=== PATIENT | male | born 1945 | race Caucasian/White ===

== ENCOUNTER 2017-01-17 06:50 | Day surgery (SDC) | payer OTHER, BC ==
[~2017-01-17 06:50] MED LIST: Lactated Ringers 1,000 ML IV SCH; Sodium Chloride 0.9% 10 ML Syringe FLUSH PRN
[2017-01-17] MEDS ORDERED: ceFAZolin 1 GM in Premix Bag 1 BAG IV ONE (07:00)
[2017-01-17] MEDS ORDERED: Bupivacaine 0.5% 10 ML SDV ONE (07:08)
[2017-01-17] MEDS ORDERED: Lidocaine 1% 30 ML SDV ONE (07:08)
[2017-01-17] MEDS ORDERED: Succinylcholine 200 MG/10 ML MDV ONE (08:12)
[2017-01-17] MEDS ORDERED: Propofol 200 MG/20 ML SDV ONE ×2 (08:21→10:45)
[2017-01-17] MEDS ORDERED: Bupivacaine 0.5% 10 ML SDV INJECT ONE ×3 (08:44→10:20)
[2017-01-17] MEDS ORDERED: Lidocaine 1% 30 ML SDV INJECT ONE ×3 (08:44→10:20)
[2017-01-17] MEDS ORDERED: Lidocaine 2% 20 ML MDV INJECT ONE (10:11)
[2017-01-17] MEDS ORDERED: Midazolam 1 MG/ML 2 ML SDV IV ONE (10:11)
[2017-01-17] MEDS ORDERED: Ondansetron 4 MG/2 ML SDV IV ONE (10:11)
[2017-01-17] MEDS ORDERED: Propofol 200 MG/20 ML SDV IV ONE (10:11)
[2017-01-17] MEDS ORDERED: Midazolam 1 MG/ML 2 ML SDV ONE (10:45)
[2017-01-17] MEDS ORDERED: Lidocaine 2% 20 ML MDV ONE (10:45)
[2017-01-17] MEDS ORDERED: Ondansetron 4 MG/2 ML SDV ONE (10:45)
--- NOTE | 2017-01-17 11:10 | PCM.OPNOTE ---
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 TT 79 mins. Placed into well padded compression dressing with cam boot. To be NWB to LLE. 2 lakia cannulated 3.0 screws to non union at distal ankle.
[2017-01-17 14:40] VITALS: BP 147/66
--- NOTE | 2017-01-18 17:50 | EKG ---
01/17/2017 - NIGEL MILLER I reviewed the EKG and agree with the machine's reading. [facility] /[id number]
--- NOTE | 2017-01-18 21:20 | OR ---
DATE: 01/17/2017 PREOPERATIVE DIAGNOSIS: Left ankle nonunion fracture. POSTOPERATIVE DIAGNOSIS: Left ankle nonunion fracture. PROCEDURE PERFORMED: Left ankle nonunion debridement with fixation. ANESTHESIA: LMA with preoperative local block of 10 mL 1:1 mixture of 1% lidocaine plain and 0.5% Marcaine plain. TOURNIQUET TIME: 79 minutes pneumatic ankle tourniquet. ESTIMATED BLOOD LOSS: Minimal. SPECIMEN: None. COMPLICATIONS: None. INDICATIONS: Dominic is a 71-year-old male, who presents with left ankle pain. He has been having redness and swelling to that left ankle, this has been going on for quite some time now. I saw him in September and we did an x-ray, which showed a possible nonunion of the ankle bone, also did an MRI on him and we discussed surgery at that time as he has been having this pain for quite a while. He has tried resting the ankle with no relief. He states on August 04, he noticed redness to the ankle, saw his primary care at the [place], who wanted him to get this checked out by specialist. He was on antibiotics and also started on a water pill. He still feels tightness to the left ankle, it is also swollen. There are no open lesions or signs of infection today. He has twisted that foot/ankle many times in the past and it is painful for him when he is walking or standing. X-rays of the ankle reveal old appearing fracture of the left distal fibula/tibia, which does not appear to be healed, it looks like a nonunion with sclerotic margins, hypertrophic type on MRI of the left ankle reveals increased signal with ankle effusion of the lateral ankle, area of nonunion to the distal fibula. It also appears that there seems to be a bony bridging at the distal fibula and tibia dorsally at the area of the syndesmosis. There is some increased signal intensity as well. The patient is not having any pain at the peroneal tendons. The ankle is stable with talar tilt and anterior drawer. The patient voiced good understanding of postprocedure and possible complications, elects to have surgery at this time. DESCRIPTION OF PROCEDURE: The patient was taken to the operating room, lying in supine position. After adequate anesthesia induction as described above. The left foot and ankle were prepped and draped in the usual sterile fashion. A pneumatic thigh tourniquet was inflated to 250 mmHg. Attention was then directed to the dorsal lateral ankle where an approximately 4 cm linear incision was made overlying the distal fibula. Sharp and blunt dissection were performed down to the level of the fibula. The nonunion at the dorsal lateral fibula was identified. The nonunion was at more of the area of the anterior inferior tib- fib ligament and seemed to be a bony bridging across the fibula to the tibia at this point. This was not taken down as I did not want to destabilize the ankle. The nonunion was debrided and also drilled with a 0.062 inch K-wire. Two Eulalio 3.0 cannulated screws were then placed across the nonunion starting at the lateral dorsal fibula and going medially, I ensured that it did not go into the syndesmosis space. The ankle joint was then tested and the syndesmosis was also tested and was stable with external rotation and also talar tilt and anterior drawer stable. The area was then irrigated with copious amounts of sterile saline. Fluoroscopy was used throughout the procedure to verify proper positioning of the screws and compression at the nonunion site. The deep closure was completed with 3-0 Vicryl and skin closure was completed with 4-0 nylon. The patient was placed in a compressive dressing in a Cam boot. He will be offloading to the foot. He has tolerated anesthesia and the procedure well and was transferred to recovery with vascular status intact as noted by immediate hyperemia to all digits upon deflation of the ankle tourniquet. He was then discharged home when he met hospital discharge requirements. [facility] /[id number]
== END 2017-01-17 13:15 | disposition home or self-care (01) ==
LOC: DL.SDS 06:50
PROVIDERS: ATTEND Podiatrist
DX: S82.892K Other fracture of left lower leg, subsequent encounter for closed fracture with nonunion (principal); I10 Essential (primary) hypertension; E78.5 Hyperlipidemia, unspecified; Z98.890 Other specified postprocedural states; Z79.82 Long term (current) use of aspirin; Z88.8 Allergy status to other drugs, medicaments and biological substances; J30.2 Other seasonal allergic rhinitis; Z87.891 Personal history of nicotine dependence
CPT/HCPCS: 27726; 76000; C1713; J0690; J2250; J2405; J2704; J7120; 01480

== ENCOUNTER 2017-08-06 10:51 | Emergency (ER) | payer BC, MEDICARE, OTHER ==
[2017-08-06] MEDS ORDERED: Diltiazem 25 MG/5 ML SDV IVPUSH ONE (11:33)
[2017-08-06 12:52] LABS: ANION GAP 15.5; CHLORIDE,CL 98 mmol/L (101-111); SODIUM,NA 135 mmol/L (135-145)
--- NOTE | 2017-08-06 13:11 | EDM.PDOC ---
ED HPI GENERAL MEDICAL PROBLEM - General Chief Complaint: Cardiovascular Problem Stated Complaint: AFIB. CHEST PAIN. CAME FROM [facility] Time Seen by Provider: 08/06/17 11:50 Source of Information: Reports: Patient, RN, RN Notes Reviewed History Limitations: Reports: No Limitations - History of Present Illness INITIAL COMMENTS - FREE TEXT/NARRATIVE: Patient presents from [facility] with complaint of increased heart rate, cough, fever and chills. GAL Evans, from [place] state he has new onset of A-fib in RVR. Patient denies chest pain but admits to shortness of breath at times. Onset: Today Location: Reports: Chest Quality: Reports: Ache Severity: Severe Improves with: Reports: None Worsens with: Reports: None Associated Symptoms: Reports: No Other Symptoms - Related Data Allergies Allergy/AdvReac Type Severity Reaction Status Date / Time lisinopril AdvReac Cough Verified 08/06/17 11:13 simvastatin [From Zocor] AdvReac Joint Pain Verified 08/06/17 11:13 Past Medical History HEENT History: Reports: Hard of Hearing, Impaired Vision Other HEENT History: bilateral hearing aids. (doesn't wear them much). bilateral cataraces Cardiovascular History: Reports: High Cholesterol, Hypertension, Other (See Below) Other Cardiovascular History: Hyperlipidemia. Dyslipidemia Respiratory History: Reports: None Gastrointestinal History: Reports: Diverticulosis, GERD Genitourinary History: Reports: Other (See Below) Other Genitourinary History: erectile disorder Musculoskeletal History: Reports: Arthritis, Back Pain, Chronic, Fracture, Osteoarthritis, Osteoporosis, Other (See Below) Other Musculoskeletal History: costochondritis, scoliosis, DJD, Heel fx and Lumbago. Stress Fx. both heels. S/P RIGHT HIP FRACTURE. S/P LEFT ANKLE FRACTURE Neurological History: Reports: Other (See Below) Other Neuro History: CEREB DEGENERATION NOS. Insomnia Psychiatric History: Reports: None Endocrine/Metabolic History: Reports: Other (See Below) Other Endocrine/Metabolic History: impaired fasting glucose Hematologic History: Reports: None Immunologic History: Reports: None Oncologic (Cancer) History: Reports: None Dermatologic History: Reports: Decubitus Ulcer, Eczema Other Dermatologic History: Chronic ulcer of leg - Infectious Disease History Infectious Disease History: Reports: Chicken Pox, Measles, Rheumatic Fever - Past Surgical History HEENT Surgical History: Reports: Cataract Surgery, Other (See Below) Other HEENT Surgeries/Procedures: Hx of septoplasty and rhinoplasty. Cardiovascular Surgical History: Reports: None GI Surgical History: Reports: Colonoscopy Musculoskeletal Surgical History: Reports: Shoulder Replacement Other Musculoskeletal Surgeries/Procedures:: R Hip Fx. lisy 1994 Social & Family History - Family History Family Medical History: Noncontributory - Tobacco Use Smoking Status *Q: Former Smoker Years of Tobacco use: 20 Packs/Tins Daily: 1 Used Tobacco, but Quit: Yes Month Tobacco Last Used: 1979 Second Hand Smoke Exposure: No - Caffeine Use Caffeine Use: Reports: Coffee - Alcohol Use Days Per Week of Alcohol Use: 4 Number of Drinks Per Day: 1 Total Drinks Per Week: 4 - Recreational Drug Use Recreational Drug Use: No ED ROS GENERAL - Review of Systems Review Of Systems: ROS reveals no pertinent complaints other than HPI. ED EXAM, GENERAL - Physical Exam Exam: See Below Exam Limited By: No Limitations General Appearance: Alert, WD/WN, No Apparent Distress Eye Exam: Bilateral Eye: Normal Inspection Ears: Normal External Exam, Normal Canal, Hearing Grossly Normal, Normal TMs Nose: Normal Inspection, Normal Mucosa, No Blood Throat/Mouth: Normal Inspection, Normal Lips, Normal Teeth, Normal Gums, Normal Oropharynx, Normal Voice, No Airway Compromise Head: Atraumatic, Normocephalic Neck: Normal Inspection, Supple, Non-Tender, Full Range of Motion Respiratory/Chest: Other (diminished crackles bases bilateral) Cardiovascular: Other (irregular rapid.) GI/Abdominal: Normal Bowel Sounds, Soft, Non-Tender, No Organomegaly, No Distention, No Abnormal Bruit, No Mass (Male) Exam: Deferred Rectal (Males) Exam: Deferred Back Exam: Normal Inspection, Full Range of Motion, NT Extremities: Normal Inspection, Normal Range of Motion, Non-Tender, Normal Capillary Refill, No Pedal Edema Neurological: Alert, Oriented, CN II-XII Intact, Normal Cognition, Normal Gait, Normal Reflexes, No Motor/Sensory Deficits Psychiatric: Normal Affect, Normal Mood Skin Exam: Warm, Dry, Intact, Normal Color, No Rash Lymphatic: No Adenopathy Course - Vital Signs Last Recorded V/S: Last Vital Signs Temp 100.5 F 08/06/17 13:49 Pulse 123 H 08/06/17 14:35 Resp 16 08/06/17 14:35 BP 121/73 08/06/17 14:35 Pulse Ox 94 L 08/06/17 14:35 - Orders/Labs/Meds Labs: Laboratory Tests 08/06/17 08/06/17 08/06/17 Range/Units 12:00 12:19 12:19 WBC 23.5 H (5.0-10.0) 10^3/uL RBC 4.99 (4.6-6.2) 10^6/uL Hgb 15.2 (14.0-18.0) g/dL Hct 45.0 (40.0-54.0) % MCV 90.2 (80-100) fL MCH 30.5 (27.0-34.0) pg MCHC 33.8 (33.0-35.0) g/dL Plt Count 291 (150-450) 10^3/uL Neut % (Auto) 86.3 H (42.2-75.2) % Lymph % (Auto) 5.9 L (20.5-50.1) % Garfield % (Auto) 6.8 (2-8) % Eos % (Auto) 0.7 L (1.0-3.0) % Baso % (Auto) 0.3 (0.0-1.0) % Sodium 135 (135-145) mmol/L Potassium 3.5 L (3.6-5.0) mmol/L Chloride 98 L (101-111) mmol/L Carbon Dioxide 25.0 (21.0-31.0) mmol/L Anion Gap 15.5 BUN 23 H (7-18) mg/dL Creatinine 1.0 (0.6-1.3) mg/dL Est Cr Clr Drug Dosing 79.92 mL/min Estimated GFR (MDRD) > 60 BUN/Creatinine Ratio 23.00 Glucose 108 H (74-105) mg/dL Lactic Acid (0.5-2.2) mmol/L Calcium 8.8 (8.4-10.2) mg/dl Total Bilirubin 1.6 H (0.2-1.0) mg/dL AST 48 H (10-42) IU/L ALT 73 H (10-60) IU/L Alkaline Phosphatase 100 (42-121) IU/L Troponin I < 0.02 (0.00-0.02) ng/ml Total Protein 7.1 (6.7-8.2) g/dl Albumin 3.2 (3.2-5.5) g/dl Globulin 3.9 Albumin/Globulin Ratio 0.82 Urine Color Hazen (YELLOW) Urine Appearance Slightly cloudy (CLEAR) Urine pH 5.5 (5.0-9.0) Ur Specific Mobile 1.015 (1.005-1.030) Urine Protein 30 H (NEGATIVE) Urine Glucose (UA) Negative (NEGATIVE) Urine Ketones 40 H (NEGATIVE) Urine Occult Blood Trace-lysed H (NEGATIVE) Urine Nitrite Negative (NEGATIVE) Urine Bilirubin Moderate H (NEGATIVE) Urine Urobilinogen 2.0 H (0.2-1.0) mg/dL Ur Leukocyte Esterase Negative (NEGATIVE) Urine RBC 0-5 /HPF Urine WBC 10-20 H (0-5/HPF) /HPF Ur Epithelial Cells Few /HPF Amorphous Sediment Few (0/HPF) /HPF Urine Bacteria Not seen (0-FEW/HPF) /HPF Urine Mucus Many H /LPF 08/06/17 Range/Units 12:36 WBC (5.0-10.0) 10^3/uL RBC (4.6-6.2) 10^6/uL Hgb (14.0-18.0) g/dL Hct (40.0-54.0) % MCV (80-100) fL MCH (27.0-34.0) pg MCHC (33.0-35.0) g/dL Plt Count (150-450) 10^3/uL Neut % (Auto) (42.2-75.2) % Lymph % (Auto) (20.5-50.1) % Garfield % (Auto) (2-8) % Eos % (Auto) (1.0-3.0) % Baso % (Auto) (0.0-1.0) % Sodium (135-145) mmol/L Potassium (3.6-5.0) mmol/L Chloride (101-111) mmol/L Carbon Dioxide (21.0-31.0) mmol/L Anion Gap BUN (7-18) mg/dL Creatinine (0.6-1.3) mg/dL Est Cr Clr Drug Dosing mL/min Estimated GFR (MDRD) BUN/Creatinine Ratio Glucose (74-105) mg/dL Lactic Acid 1.3 (0.5-2.2) mmol/L Calcium (8.4-10.2) mg/dl Total Bilirubin (0.2-1.0) mg/dL AST (10-42) IU/L ALT (10-60) IU/L Alkaline Phosphatase (42-121) IU/L Troponin I (0.00-0.02) ng/ml Total Protein (6.7-8.2) g/dl Albumin (3.2-5.5) g/dl Globulin Albumin/Globulin Ratio Urine Color (YELLOW) Urine Appearance (CLEAR) Urine pH (5.0-9.0) Ur Specific Mobile (1.005-1.030) Urine Protein (NEGATIVE) Urine Glucose (UA) (NEGATIVE) Urine Ketones (NEGATIVE) Urine Occult Blood (NEGATIVE) Urine Nitrite (NEGATIVE) Urine Bilirubin (NEGATIVE) Urine Urobilinogen (0.2-1.0) mg/dL Ur Leukocyte Esterase (NEGATIVE) Urine RBC /HPF Urine WBC (0-5/HPF) /HPF Ur Epithelial Cells /HPF Amorphous Sediment (0/HPF) /HPF Urine Bacteria (0-FEW/HPF) /HPF Urine Mucus /LPF Meds: Medications Discontinued Medications Generic Name Dose Route Start Last Admin Trade Name Freq PRN Reason Stop Dose Admin Diltiazem HCl 25 mg 08/06/17 11:33 08/06/17 11:40 Diltiazem IVPUSH 08/06/17 11:34 25 mg ONETIME ONE Administration Diltiazem HCl 100 mg/ Sodium 100 mls @ 5 mls/hr 08/06/17 14:00 08/06/17 15:16 Chloride IV 10 mg/hr TITRATE ELDA 10 mls/hr Protocol Titration 5 MG/HR Azithromycin 500 mg/ Sodium 250 mls @ 250 mls/hr 08/06/17 15:41 08/06/17 15: 58 Chloride IV 08/06/17 16:40 250 mls/hr ONETIME ONE Administration Sodium Chloride 1,000 mls @ 100 mls/hr 08/06/17 15:41 08/06/17 15:58 Normal Saline IV 08/07/17 01:40 100 mls/hr .BOLUS ONE Administration - Radiology Interpretation Free Text/Narrative:: Chest x=ray: Left lower lobe pneumonia. See Rad report. Departure - Departure Time of Disposition: 15:26 Disposition: DC/Tfer to Acute Hospital 02 Reason for Transfer *Q: Primary PCI Indicated Condition: Fair Clinical Impression: Atrial fibrillation with RVR Pneumonia Qualifiers: Pneumonia type: due to unspecified organism Laterality: left Lung location: lower lobe of lung Qualified Code(s): J18.1 - Lobar pneumonia, unspecified organism Referrals: Jody Thorne RPH, PA-C [Primary Care Provider] - Forms: ED Department Discharge, Interfacility Transfer [facility]
[2017-08-06] MEDS ORDERED: Diltiazem 100 MG in Sodium Chloride 0.9% 100 ML IV SCH (14:00)
[2017-08-06 14:36] VITALS: BP 121/73
[2017-08-06] MEDS ORDERED: Azithromycin 500 MG in Sodium Chloride 0.9% 250 ML IV ONE (15:41)
[2017-08-06] MEDS ORDERED: Sodium Chloride 0.9% 1,000 ML IV ONE (15:41)
== END 2017-08-06 16:08 ==
LOC: DL.ED 10:51
DX: I48.91 Unspecified atrial fibrillation (principal); J18.9 Pneumonia, unspecified organism; I10 Essential (primary) hypertension; E78.00 Pure hypercholesterolemia, unspecified; E78.5 Hyperlipidemia, unspecified; Z88.8 Allergy status to other drugs, medicaments and biological substances; Z87.891 Personal history of nicotine dependence
CPT/HCPCS: 36415; 71045; 80053; 81001; 83605; 84484; 85025; 87040; 87804; 96365; 96375; 96376; 99285; J0456; J3490; J7030; J7050